=== PATIENT | female | born 1980 | race Two or more races ===

== ENCOUNTER → 2025-05-23 | Outpatient (CLI) | payer MEDICAID, SELFPAY ==
--- NOTE | 2025-05-23 16:26 | XR_ITS ---
Examination: Wrist, left 3 views Technique: Wrist AP, oblique, lateral 3 views Date and time of exam: May 23, 2025 1630 hrs. Indications: Left hand wrist pain 3 years. Findings: Moderate osteopenia. Mild narrowing radiocarpal intercarpal and carpometacarpal joints No erosive arthritis No fractures Impression: Mild narrowing wrist joints
--- NOTE | 2025-05-23 16:26 | XR_ITS ---
Examination: Hand, left 3 views Technique: Hand AP, oblique, lateral 3 views Date and time of exam: May 23, 2025, 1630 hrs. Indications: Palpable mass fourth digit noticed beginning 3 years ago. Findings: Moderate to particular bone demineralization. No fracture No bony exostosis or cortical bone destruction Impression: No fracture or bony exostosis Consider ultrasound soft tissue of any mass left fourth digit
== END | disposition home or self-care (01) ==
PROVIDERS: Referring Provider Nurse Practitioner Gerontology; Visit Provider Nurse Practitioner Gerontology
DX: R22.32 Localized swelling, mass and lump, left upper limb (principal); M25.832 Other specified joint disorders, left wrist
CPT/HCPCS: 73110; 73130

== ENCOUNTER 2025-06-10 15:12 | Emergency (ER) | payer MEDICAID, SELFPAY ==
--- NOTE | 2025-06-10 15:25 | PD.EDNEURO ---
Neuro Symptoms Deficit-RME/HPI General Chief Complaint: Neuro Symptoms/Deficit Stated Complaint: BLURRED VISION, FACIAL DROOP, TROUBLE SPEAKING A Time Seen by Provider: 06/10/25 15:27 Arrival date/time: 06/10/25 15:12 RME / HPI RME / HPI Narrative: 44 year old female with no stated medical history presents to the ED for evaluation of left facial droop, change in speech, and blurred vision beginning at ~ noon today. Reportedly symptoms began while working and did not improve, prompting ED visit. Denies any history of similar symptoms. Denies recent illness or fevers. Related Data Home Medications ?Medication ?Instructions ?Recorded ?Confirmed Vitamin * 1 tab PO QDAY #0 tabs 10/28/14 Previous Rx's ?Medication ?Instructions ?Recorded Hydrocodone/Acetaminophen * (NORCO 1 tab PO Q6H PRN PAIN #30 tabs 01/14/17 5/325 *) prednisone 20 mg tablet 60 mg PO QDAY 7 days #21 tabs 06/10/25 valacyclovir 1 gram tablet 1,000 mg PO Q8H 7 days #21 tabs 06/10/25 Allergies Allergy/AdvReac Type Severity Reaction Status Date / Time bee venom protein (honey bee) Allergy Severe Swelling Verified 06/10/25 15:13 of Lip/Tongue/Throat Review of Systems Review of Systems Systems Reviewed: All systems reviewed, normal except as documented Past Medical History Past Medical History RESPIRATORY: Positive Asthma Social History SMOKING STATUS: Never smoker ED Exam Narrative Physical exam: Constitutional: Awake, alert, nontoxic, no acute distress, obese. HEENT: Normocephalic, atraumatic, extraocular movements intact. Neck: Supple CV: Regular rate and rhythm, no murmurs/rubs/gallops Lungs: Clear to auscultation BL, no respiratory distress. Abd: Soft, NT, ND, no HSM noted to palpation Extremities: No deformities, no edema noted Neuro: AAOx3, There is flattening of forehead folds right side. There is right facial droop overall. Otherwise CN 2-12 gibl. 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 Patient evaluated in old triage. 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 1542h: I spoke with teleneurologist. 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 Recommends steroids and Valtrex. Quality Measures Suspected type of Stroke: Unknown at this time (No CVA) Last known well (date): 06/10/25 Last known well (time): 12:00 Tenecteplase given: Reason(s) TPA not given: Stroke severity too mild (non-disabling) (most likely Kee's Palsy) not given stroke Orders Category Date Time Status Bedside Blood Glucose NOW Care 06/10/25 15:26 Active Filter Press Tender NOW Care 06/10/25 15:26 Active Continuous Pulse Oximetry NOW Care 06/10/25 15:26 Completed EKG (ED ONLY) *Do not use* NOW Care 06/10/25 15:26 Completed Insert IV NOW Care 06/10/25 15:26 Completed NIH Stroke Scale now Care 06/10/25 15:26 Active Nurse Swallow Screen x1 Care 06/10/25 15:26 Active Consult to Neurology / Tele-Neurology Routine Cons 06/10/25 15:[address] stroke protocol Stat Exams 06/10/25 15:26 Completed EKG (ED Only) Stat Exams 06/10/25 15:26 Draft CBC Stat Lab 06/10/25 15:18 Completed Comprehensive Metabolic Panel Stat Lab 06/10/25 15:18 Completed Drug Screen,Urine Stat Lab 06/10/25 15:26 Ordered HCG Titer if Positive Stat Lab 06/10/25 15:18 Completed Magnesium Stat Lab 06/10/25 15:18 Completed Partial Thromboplastin Time Stat Lab 06/10/25 15:18 Completed Prothrombin Time with INR Stat Lab 06/10/25 15:18 Completed predniSONE Med 06/10/25 15:56 Discontinued 60 mg PO X1 ONE Vital Signs Vital signs: Vital Signs Temperature 98.7 F 06/10/25 15: Pulse Rate 88 06/10/25 15:26 Respiratory Rate 16 06/10/25 15:26 Blood Pressure 150/87 H 06/10/25 15:26 Pulse Oximetry (%) 99 06/10/25 15:26 Oxygen Delivery Method Room Air 06/10/25 15:26 Pulse ox is 99% on room air which is adequate. Neuro Symptoms / Deficit Patient data External records reviewed:: [facility] previous records Clinical information provided by:: patient Social determinants that could affect healthcare access:: none Patient has the following chronic illnesses:: None How is presenting disease/condition affected by chronic disease/condition?: no chronic disease Evaluation data The following diagnostics were reviewed and interpreted by me:: lab results, radiology exam(s) and EKG tracing(s) (EKG @ 15:41h. NSR, rate 70, no acute ischemic changes, no STEMI. ) Lab and/or radiology exams considered but not ordered:: None Interpretation Summary: Ordering Physician: Roxana Rios MD Date of Service: 06/10/25 Procedure(s): CT stroke protocol Accession Number(s): [id number] cc: Sohail Bernstein MD; Roxana Rios MD~ Examination: CT brain head without contrast. 2-D sagittal coronal reconstructions Date and time of exam:June 10, 2025, 1526 hours INDICATIONS: Stroke alert, onset focal neurologic deficit including right-sided facial droop slurred speech onset today CTDI: vol (mGy):53.6 DLP: (mGycm):1063 Technique: Multiple CT axial sections of the brain have been obtained, 5 mm slice thickness. Contrast has not been administered. 2-D sagittal, coronal reconstructions have been obtained Low dose protocols were performed. One or more of the following dose reduction techniques were used; automated exposure control, adjustment of the mA and/or KV according to patient size, use of iterative reconstruction technique. Findings: No significant ventricular enlargement. Intra-axial or extra-axial hemorrhage density is not seen. No mass effect or midline shift Basal cisterns are not remarkable. Fourth ventricle is midline. Cranial vault intact. Impression: Negative for acute hemorrhage, mass effect or midline shift Dictated By: Sohail Bernstein MD Signed By: <Electronically signed by Sohail Bernstein MD in OV> 06/10/25 1533 Medications / Prescriptions Medications or Prescriptions considered but not ordered:: None Medication administrations:: Medication Administration History Discontinued Medications Prednisone (Prednisone 20 Mg Tablet) 60 mg PO X1 ONE Stop: 06/10/25 15:57 See above Consultations Consultation(s) initiated? (list below): Yes Consultation #1 (Physician, Specialty, Details): See course Diagnosis Neuro Differential Diagnosis: cerebrovascular accident, transient cerebral ischemia and other (Kee's Palsy ) Most likely diagnosis given after review of the tests above:: Kee's Palsy Admission Indicated Admission indicated?: not indicated Admission Request Was there a request for admission?: No Disposition Plan Disposition Plan: Discharge Discharge Attestation Discharge Attestation: The patient and all family members were given an opportunity to ask questions and understood the discharge instructions. Discharge instructions specifically effects, indications for sooner follow up or return to the emergency department, and the expected course of current diagnosis. Patient condition: Stable Discharge Plan Plan Patient Disposition: HOME (Self Care) Patient condition on transfer: Stable Prescriptions/Referrals Prescriptions/Med Rec: New valacyclovir 1 gram tablet 1,000 mg PO Q8H 7 Days Qty: 21 0RF prednisone 20 mg tablet 60 mg PO QDAY 7 Days Qty: 21 0RF Taper: Prednisone Taper 20 mg DAILY for 2 Days and 0 Hour 10 mg DAILY for 2 Days and 0 Hour 5 mg DAILY for 7 Days and 0 Hour No Action Vitamin * 1 EACH tablet 1 tab PO QDAY Qty: 0 Hydrocodone/Acetaminophen * (NORCO 5/325 *) 1 TAB tablet 1 tab PO Q6H PRN (Reason: PAIN) Qty: 30 0RF Problem List Clinical Impression: Kee's palsy Patient/Caregiver Discharge Instructions Education Materials: Kee's Palsy Additional Instructions: Algunos principios generales de josé antonio que pueden ayudarte son los principios de ADELANTE: Agua: (beber suficiente agua fresca para mantenerse hidratado, priorizando el agua en lugar de refrescos, caf?, t?, jugos, etc.). [place] (descansar adecuadamente por la noche, acostarse unas horas antes de la medianoche y evitar las pantallas, la televisi?n y la m?faisal josé antonio summer antes de acostarse, as? chantel las comidas pesadas summer antes de acostarse). Ejercicio: (ejercicio/caminatas diarias seg?n la tolerancia). Lennie solar: (exponer la piel al annalisa sophie 15-20 minutos aproximadamente, temprano por la ma?alton y al atardecer, para obtener los beneficios de la vitamina D). Aire (ejercicios de respiraci?n profunda temprano por la ma?alton al aire donya). Nutricion: (consumir daniel dieta a base de plantas, evitar las toni en general y los alimentos altamente procesados). Templanza (evitar el alcohol, las drogas il?citas, las bebidas con cafe?na, fumar, etc.). Jennifer en Gustavo (dedicar tiempo diariamente al estudio b?blico y la oraci?n: la contemplaci?n tiene beneficios para la josé antonoi). Recursos adicionales que pueden ser ?tiles: [email or web address], consulte la secci?n de recursos y seminarios. Print Language: Lithuanian Stand Alone Forms: Cici Award Info., Patient Portal Info Letter
[2025-06-10 15:26] VITALS: BP 150/87; PULSE 80; PULSE 88; RESP 16; TEMP 37.1; O2SAT 99
--- NOTE | 2025-06-10 15:26 | EKG_ITS ---
[facility] Test Date: 2025-06-10 Pat Name: ANTON PALACIOS Department: Room: - Gender: Female Public Services Assistant: : 1980 Requested By: Roxana Dangelo Order Number: [id number] Reading MD: Roxana Dangelo Measurements Intervals Morrison Rate: 70 P: 42 NJ: 154 QRS: 21 QRSD: 84 T: 30 QT: 390 QTc: 421 Interpretive Statements SINUS RHYTHM No previous ECG available for comparison /store/S0/[id number]/ecg/[id number].pdf
--- NOTE | 2025-06-10 15:40 | ESCONSULT_ITS ---
Tele Neuro Consultation Consultation Date 06/10/25 Consultation Narrative [facility] Patient Name:???Ritika Richardson Date of :???1980 Identification Number:??? Date of Service:???06/10/2025 15:21:37 Diagnosis:?G51.0 - Kee palsy Impression: ?44 year old female presenting with isolated right upper and lower facial weakness consistent with peripheral etiology, Kee's palsy. House Brackmann grade IV Our recommendations are outlined below. Recommendations: ? Ensure normal otoscopic exam/no vesicles ? Recommend Prednisone 60mg daily x 6 days followed by a four-day taper off. ? Valtrex 1g TID x 7 days ? Corneal protection/ocular lubricants Sign Out: ? Discussed with Emergency Department Provider Advanced Imaging:Advanced Imaging Deferred because: Stroke not suspected with clinical presentation and exam Metrics: Last Known Well: 06/10/2025 11:00:00 Dispatch Time: 06/10/2025 15:21:37 Arrival Time: 06/10/2025 15:12:00 Initial Response Time: 06/10/2025 15:23:13Symptoms: right facial droop. Initial patient interaction: 06/10/2025 15:26:42 NIHSS Assessment Completed: 06/10/2025 15:31:18Patient is not a candidate for Thrombolytic. Thrombolytic Medical Decision: 06/10/2025 15:31:19Patient was not deemed candidate for Thrombolytic because of following reasons: LKW outside 4.5 hr window. . other diagnosis suspected kee's palsy. CT Head: CT head unremarkable for acute infarction or hemorrhage per Radiology: no acute findings Primary Provider Notified of Diagnostic Impression and Management Plan on: 06/10/2025 15:40:32 History of Present Illness:Patient is a 44 year old Female. Patient was brought by private transportation with symptoms of right facial droop. The patient presents after noticing right facial weakness earlier today. She believes it began around 11am but subsequently became more prominent. She has difficulty closing the right eye and blinking. She denies any pain, sensory change, abnormal taste or change in hearing. She denies any limb weakness or gait disturbance. ? Past Medical History: Other PMH:? Denies chronic medical problems Medications: No Anticoagulant use? No Antiplatelet use Reviewed EMR for current medications Allergies:? Reviewed Social History: Smoking: No Family History: There is no family history of premature cerebrovascular disease pertinent to this consultation ROS : 14 Points Review of Systems was performed and was negative except mentioned in HPI. Past Surgical History: There Is No Surgical History Contributory To Today?s Visit ? Examination: BP(155/87),?Pulse(78),?Blood Glucose(108) 1A: Level of Consciousness - Alert; keenly responsive?+ 0 1B: Ask Month and Age - Both Questions Right?+ 0 1C: Blink Eyes & Squeeze Hands - Performs Both Tasks?+ 0 2: Test Horizontal Extraocular Movements - Normal?+ 0 3: Test Visual Lerma - No Visual Loss?+ 0 4: Test Facial Palsy (Use Grimace if Obtunded) - Unilateral Complete paralysis (upper/lower face)?+ 3 5A: Test Left Arm Motor Drift - No Drift for 10 Seconds?+ 0 5B: Test Right Arm Motor Drift - No Drift for 10 Seconds?+ 0 6A: Test Left Leg Motor Drift - No Drift for 5 Seconds?+ 0 6B: Test Right Leg Motor Drift - No Drift for 5 Seconds?+ 0 7: Test Limb Ataxia (FNF/Heel-Hebert) - No Ataxia?+ 0 8: Test Sensation - Normal; No sensory loss?+ 0 9: Test Language/Aphasia - Normal; No aphasia?+ 0 10: Test Dysarthria - Normal?+ 0 11: Test Extinction/Inattention - No abnormality?+ 0 NIHSS Score:?3 Pre-Morbid Modified [place] Scale: 0 Points = No symptoms at all Spoke with :?Dr Rios This consult was conducted in real time using interactive audio and video technology. Patient was informed of the technology being used for this visit and agreed to proceed. Patient located in hospital and provider located at home/office setting. Patient is being evaluated for possible acute neurologic impairment and high probability of imminent or life-threatening deterioration. I spent total of 35 minutes providing care to this patient, including time for face to face visit via telemedicine, review of medical records, imaging studies and discussion of findings with providers, the patient and/or family. Dr Brad Stephen [facility] For Inpatient follow-up with [facility] physician please call [facility] at . As we are not an outpatient service for any post hospital discharge needs please contact the hospital for assistance. If you have any questions for the [facility] physicians or need to reconsult for clinical or diagnostic changes please contact us via [facility] at . Signature :Vicki Stephen
[2025-06-10 15:41] VITALS: BMI 38.9
[2025-06-10 15:46] LABS: Basophils # (Auto) 0.0 Thou/mm3 (0.0-0.2); Basophils % (Auto) 0 % (0-2.5); Eosinophils # (Auto) 0.3 Thou/mm3 (0.0-0.5); Eosinophils % (Auto) 4 % (0-10); Hematocrit 40.9 % (36.0-46.0); Hemoglobin 14.0 g/dL (12.0-16.0); Immature Granulocytes Auto 0.01 Thou/mm3 (0.00-0.00); Lymphocytes # (Auto) 2.9 Thou/mm3 (1.0-4.8); Lymphocytes % (Auto) 37 % (10-50); Mean Corpuscular HGB Conc 34.2 g/dl (31.0-37.0); Mean Corpuscular Hemoglobin 29.4 pg (25.0-35.0); Mean Corpuscular Volume 86 fL (80-100); Monocytes # (Auto) 0.7 Thou/mm3 (0.0-0.8); Monocytes % (Auto) 8 % (0-12); Neutrophils # (Auto) 4.0 Thou/mm3 (1.8-7.7); Neutrophils % (Auto) 51 % (37-80); Nucleated Red Blood Cell # 0.00 Thou/mm3 (0.00-0.00); Nucleated Red Blood Cell % 0 /100 WBC (0); Platelet Count 279 Thou/mm3 (140-440); RDW Standard Deviation 37.7 fL (36.4-46.3); Red Blood Count 4.77 Miln/mm3 (4.00-5.20); White Blood Count 7.9 Thou/mm3 (3.6-11.0)
[2025-06-10 15:57] LABS: HCG Titer if Positive Negative
[2025-06-10 15:58] LABS: INR 1.0 (0.9-1.3); Partial Thromboplastin Time 29.8 Seconds (22.0-36.0); Prothrombin Time 10.6 Seconds (9.0-12.2)
[2025-06-10 16:03] LABS: Alanine Aminotransferase 106 U/L (10-49); Albumin, Serum 5.0 gm/dL (3.5-5.0); Albumin/Globulin Ratio 1.9 (1.2-2.2); Alkaline Phosphatase 114 U/L (46-116); Anion Gap 10 (7-16); Aspartate Amino Transferase 68 U/L (0-34); BUN/Creatinine Ratio 9 Ratio (12-20); Bilirubin,Total 0.4 mg/dL (0.3-1.2); Blood Urea Nitrogen 6 mg/dL (9-23); Calcium 9.7 mg/dL (8.3-10.6); Calcium (Corrected) 9.7 mg/dL (8.5-10.1); Carbon Dioxide 23.3 mMol/L (20.0-31.0); Chloride 107 mMol/L (98-107); Creatinine (Component) 0.7 mg/dL (0.6-1.3); Estimated Creatinine Clearance 92.3 mL/min (>60); Globulin 2.6 gm/dL (2.3-3.5); Glucose 98 mg/dL (74-106); Magnesium 2.0 mg/dL (1.6-2.6); Osmolality,Calculated 277 (275-295); Potassium 4.2 mMol/L (3.4-5.1); Sodium 140 mMol/L (136-145); Total Protein 7.6 gm/dL (5.7-8.2); eGFR > 60 See Note
[2025-06-10 16:34] VITALS: BP 178/98; PULSE 89; RESP 18; TEMP 36.8; O2SAT 99
== END 2025-06-10 16:35 | disposition home or self-care (01) ==
PROVIDERS: Emergency Provider Family Medicine; PCP Family Medicine
DX: G51.0 Bell's palsy (principal)
CPT/HCPCS: 36415; 70450; 80053; 80307; 83735; 84703; 85025; 85610; 85730; 93005; 99285; J7512